=== PATIENT | female | born 1985 | race Caucasian/White ===

== ENCOUNTER → 2017-08-08 | Outpatient (CLI) | payer OTHER | LOC: FIMAGING 07:17 | PROVIDERS: ATTEND Obstetrics & Gynecology | DX: O44.22 Partial placenta previa NOS or without hemorrhage, second trimester (principal); Z3A.19 19 weeks gestation of pregnancy ==

== ENCOUNTER → 2017-09-05 | Outpatient (CLI) | payer OTHER | LOC: FIMAGING 07:50 | PROVIDERS: ATTEND Obstetrics & Gynecology | DX: Z34.02 Encounter for supervision of normal first pregnancy, second trimester (principal); Z3A.23 23 weeks gestation of pregnancy ==

== ENCOUNTER 2017-11-23 12:14 | Observation (INO) | payer OTHER ==
[2017-11-23] MEDS ORDERED: TERBUTALINE SULFATE 1 MG/ML VIAL SC PRN (12:24)
[2017-11-23] MEDS ORDERED: LR 1,000 ML IV ONE (12:25)
[2017-11-23] MEDS ORDERED: ONDANSETRON 4 MG/2 ML VIAL IVP PRN (13:01)
[2017-11-23] MEDS ORDERED: FAMOTIDINE 20 MG TAB PO PRN (13:01)
[2017-11-23] MEDS ORDERED: FAMOTIDINE 20 MG/2 ML SDV IV PRN (13:10)
[2017-11-23 13:54] VITALS: BP 108/73; PULSE 77
[2017-11-23 14:11] LABS: PLATELET COUNT 163 10^3/uL (150-400)
--- NOTE | 2017-11-23 15:56 | PDDCSUM ---
Discharge Summary Discharge Summary: S) Pt sent from office 2/2 painful contractions x 3 hours. She rated them 6/10. She denies any LOF, VB. She reports +FM. She did have 1 episode of nausea with vomiting. After 2 hours of monitoring and contractions resolving she declines repeat SVE, desires d/c home at this time. O) VSS, afebrile constitutional: WNWF, A&Ox3 HEENT: normocephalic, atraumatic, supple Heart: RRR, No murmur Chest: CTA-B Abdomen: Soft, nontender, gravid Extremities: Trace edema, and negative Jignesh's sign Neuro: Grossly normal status: EFM: baseline 140 +accels, variables x2, moderate variability noted [place]: irregular contractions notes, resolved with terbutaline, no contractions noted at this time A) 32yo with IUP@ 35+wks contractions- resolved with terbutaline No evidence of PTL dehydration- resolved with IV fluids GBS Pending P) Discharge home today cont PO hydration RTO on Monday for scheduled appt [facility] and PTL Prec discussed
== END 2017-11-23 16:20 | disposition home or self-care (01) ==
LOC: FLD 12:14
PROVIDERS: ADMIT Obstetrics & Gynecology; ATTEND Advanced Practice Midwife
DX: O99.89 Other specified diseases and conditions complicating pregnancy, childbirth and the puerperium (principal); Z3A.35 35 weeks gestation of pregnancy
CPT/HCPCS: 59025; G0378; J3105

== ENCOUNTER → 2018-02-19 | Outpatient (CLI) | payer OTHER | LOC: FIMAGING 15:42 | PROVIDERS: ATTEND Obstetrics & Gynecology | DX: N63.13 Unspecified lump in the right breast, lower outer quadrant (principal); N64.4 Mastodynia ==

== ENCOUNTER 2018-02-21 13:01 | Emergency (ER) | payer OTHER ==
--- NOTE | 2018-02-21 13:28 | EDPHY ---
H & P Stated Complaint: r mastitis Source: Patient Exam Limitations: No limitations - Personal History LMP (Females 10-55): Over 28 Days Ago Current Tetanus/Diphtheria Vaccine: Yes - Medical/Surgical History Hx Asthma: No Hx Chronic Respiratory Disease: No Hx Diabetes: No Hx Cardiac Disease: No Hx Renal Disease: No Hx Cirrhosis: No Hx Alcoholism: No Hx HIV/AIDS: No Hx Splenectomy or Spleen Trauma: No Other PMH: HX OF MIGRAINES W/ AURA, PCOS, ASTHMA, HX OF DEPRESSION, HX OF R ANKLE FX, ANKLE SURG X 2, WISDOM TEETH REM'D. DENIES PERSONAL/FAMILY HX OF ANESTH PROBLEMS. - Social History Smoking Status: Never smoked Time Seen by Provider: 02/21/18 13:23 HPI/ROS: HPI: This is a 32-year-old female who presents with Chief Complaint: Right breast mastitis Location: Right breast Quality: Mastitis Duration: 3 days Signs and Symptoms: + fever, no nausea, no vomiting, no diarrhea, no urinary symptoms, no chest pain, no shortness of breath, no wheezing, no cough, no sore throat, no neck stiffness, no joint pain, no swollen glands, no ear pain, no rash Timing: Worsening Severity: Moderate Context: Patient is currently breast-feeding her 2 month old daughter and presents with complaints of rapidly worsening right breast infection. She says that over the last 48 hr since starting dicloxacillin there has been no improvement and in fact the area has become more red, warm and tender to touch. She had a temperature yesterday evening. Dr. Valdovinos ordered a breast ultrasound 02/19/18 that showed a rounded phlegmon/mass and small fluid collection milk versus small early abscess in her right breast 4:00 position. Patient has concerns with admission to the hospital and prefers outpatient management if possible. Modifying Factors: dicloxacillin Comment: ROS: see HPI Constitutional: + fever, no chills, no weight loss Eyes: No blurred vision Respiratory: No shortness of breath, no cough Cardiovascular: No chest pain, no palpitations Gastrointestinal: No nausea, no vomiting, no diarrhea, no hematemesis, no blood in stool Genitourinary: No dysuria, no blood in urine Extremities: No myalgias, no edema Neurologic: No weakness, no numbness Skin: No rashes, no petechiae Hematologic: No bruising, no bleeding MEDICAL/SURGICAL/SOCIAL HISTORY: Medical/surgical history: HX OF MIGRAINES W/ AURA, PCOS, ASTHMA, HX OF DEPRESSION, HX OF R ANKLE FX, ANKLE SURG X 2, WISDOM TEETH removal. DENIES PERSONAL/FAMILY HX OF ANESTHESIA PROBLEMS. Social history: . Family history noncontributory. CONSTITUTIONAL: awake and alert, no obvious distress HEENT: Atraumatic and normocephalic, PERRL, EOMI. Nares patent; no rhinorrhea; no nasal mucosal edema. Tympanic membranes clear. Oropharynx clear, no exudate and moist pink mucosa. Airway patent. No lymphadenopathy. No meningismus. Cardiovascular: Normal S1/S2, regular rate, regular rhythm, without murmur rub or gallop. PULMONARY/CHEST: Symmetrical and nontender. Clear to auscultation bilaterally. Good air movement. No accessory muscle usage. BREAST: moderately erythematous indurated 9 oclock to 3 oclock position, hot to touch. no nipple discharge. ABDOMEN: Soft, nondistended, nontender, no rebound, no guarding, no peritoneal signs, no masses or organomegaly. No CVAT. EXTREMITIES: 2/2 pulses, strength 5/5, no deformities, no clubbing, no cyanosis or edema. NEUROLOGICAL: no focal neuro deficits. GCS 15. SKIN: Warm and dry, no erythema. no rash. Good capillary refill. (Ann Moore) Constitutional: Initial Vital Signs Temperature (C) 36.7 C 02/21/18 13:04 Heart Rate 90 02/21/18 13:04 Respiratory Rate 17 02/21/18 13:04 Blood Pressure 106/69 02/21/18 13:04 O2 Sat (%) 94 02/21/18 13:04 O2 Delivery Mode Room Air Allergies/Adverse Reactions: codeine Allergy (Verified 02/21/18 13:02) Abdominal Cramping Home Medications: Medication Instructions Recorded Dicloxacillin Sodium 02/21/18 Diflucan 02/21/18 Medical Decision Making - Diagnostics Imaging Results: Imaging Impressions Breast Ultrasound 02/21/18 13:34 Impression: Significantly increased size inferior right breast induration and complex fluid collection consistent with mastitis and breast abscess formation. Findings were communicated by telephone with Dr. Ann Moore at 02/21/2018 16 :14 ED Course/Re-evaluation: IV started and labs drawn. ED decision to consult Dr. Valdovinos. He recommends repeat breast ultrasound. He agrees with IV antibiotics, Clindamycin, with admission to the hospitalist and consult for I and D if needed. 1410: Labs reviewed. WBC 16 K with left shift noted. No signs of anemia/ platelet dysfunction/NIKO/electrolyte imbalance. 1430: Patient is currently at ultrasound 1514: Patient is currently breast-feeding experiencing considerable pain. She is now willing to take pain medications. IV morphine 4 mg ordered. 1619: Spoke with Radiology who advised that ultrasound shows a larger fluid collection that suspicious for abscess located at the 6 o'clock position approximately 4-5 cm from the nipple. ED decision to consult. Spoke with Dr. Barnett who kindly agrees to consult on the patient and provide further care. May benefit the patient to be switched to antibiotics of Augmentin or clindamycin 1700: End of shift. Signed over to Dr. Brown pending Dr. Barnett consult. This patient was seen under the supervision of my secondary supervising physician. I evaluated care for this patient independently. Discussed this patient with Dr. Brown who did see the patient. (Ann Moore) Differential Diagnosis: Differential diagnosis is not limited to cystitis, breast abscess, MRSA infection. (Ann Moore) Other Provider: 5:30 p.m. the patient's abscess was drained by Dr. Barnett. He wrote her prescription for Augmentin. He will follow up with her tomorrow. (Juan Carlos Brown) - Data Points Laboratory Results: Laboratory Results 02/21/18 13:45 02/21/18 13:45 02/21/18 02/21/18 13:45 13:45 WBC 16.10 10^3/uL H 10^3/uL (3.80-9.50) RBC 4.19 10^6/uL 10^6/uL (4.18-5.33) Hgb 12.0 g/dL L g/dL (12.6-16.3) Hct 36.0 % L % (38.0-47.0) MCV 85.9 fL fL (81.5-99.8) MCH 28.6 pg pg (27.9-34.1) MCHC 33.3 g/dL g/dL (32.4-36.7) RDW 11.7 % % (11.5-15.2) Plt Count 220 10^3/uL 10^3/uL (150-400) MPV 10.2 fL fL (8.7-11.7) Neut % (Auto) 83.5 % H % (39.3-74.2) Lymph % (Auto) 5.7 % L % (15.0-45.0) [place] % (Auto) 9.3 % % (4.5-13.0) Eos % (Auto) 0.9 % % (0.6-7.6) Baso % (Auto) 0.2 % L % (0.3-1.7) Nucleat RBC Rel Count 0.0 % % (0.0-0.2) Absolute Neuts (auto) 13.42 10^3/uL H 10^3/uL (1.70-6.50) Absolute Lymphs (auto) 0.92 10^3/uL L 10^3/uL (1.00-3.00) Absolute Monos (auto) 1.50 10^3/uL H 10^3/uL (0.30-0.80) Absolute Eos (auto) 0.15 10^3/uL 10^3/uL (0.03-0.40) Absolute Basos (auto) 0.04 10^3/uL 10^3/uL (0.02-0.10) Absolute Nucleated RBC 0.00 10^3/uL 10^3/uL (0-0.01) Immature Gran % 0.4 % % (0.0-1.1) Immature Gran # 0.07 10^3/uL 10^3/uL (0.00-0.10) Sodium 141 mEq/L mEq/L (135-145) Potassium 3.9 mEq/L mEq/L (3.3-5.0) Chloride 106 mEq/L mEq/L (97-110) Carbon Dioxide 22 mEq/l mEq/l (22-31) Anion Gap 13 mEq/L mEq/L (8-16) BUN 14 mg/dL mg/dL (7-23) Creatinine 0.6 mg/dL mg/dL (0.6-1.0) Estimated GFR > 60 Glucose 87 mg/dL mg/dL (70-100) Calcium 9.2 mg/dL mg/dL (8.5-10.4) Medications Given: Ceftriaxone Sodium/Dextrose (Rocephin 1 Gm (Premix)) 50 mls @ 100 mls/hr IV EDNOW ONE PRN Reason: Protocol Stop: 02/21/18 17:22 Last Admin: 02/21/18 16:58 Dose: 50 mls Discontinued Medications Ibuprofen (Motrin) 600 mg PO EDNOW ONE Stop: 02/21/18 16:57 Last Admin: 02/21/18 16:58 Dose: 600 mg Morphine Sulfate (Morphine) 4 mg IVP EDNOW ONE Stop: 02/21/18 15:15 Last Admin: 02/21/18 15:47 Dose: 2 mg Departure - Departure Disposition: Home, Routine, Self-Care Clinical Impression: Acute mastitis of right breast, Abscess of right breast Condition: Fair Referrals: Aranza Sheppard MD [Primary Care Provider] - As per Instructions Yinka Barnett MD [Medical Doctor] - 1 day without fail
[2018-02-21 13:51] LABS: PLATELET COUNT 220 10^3/uL (150-400)
[2018-02-21] MEDS ORDERED: IBUPROFEN 600 MG TAB PO ONE ×2 (16:52→16:56)
[2018-02-21] MEDS ORDERED: cefTRIAXone 1 GM/DEXTROSE 1 GM/50 ML BAG IV ONE (16:56)
--- NOTE | 2018-02-21 17:02 | PDCONSULT ---
It Desktop Support Technician Note: Kelin is a 32 y/o female with a one month 19 day old baby who has been nursing. She developed a "blocked duct" one month ago and was seen by Dr. Pedraza 2 days ago at which time she was started on Dicloxacillin. She was not improving and was referred to the ED by Dr. Pedraza for evaluation. Surgical consultation was requested by Hermila Moore PA-C PMH: prior nipple piercing age 19/no prior mastitis all: codeine SH: here with daughter (Tanja) and FH: NC ROS: has been able to nurse from the right breast/feeling chilled with fever PE: WDWN female in mild distress right breast erythematous, swollen with fluctuant abscess in the right LIQ using sterile technique and after injecting the skin with 1% lidocaine the abscess was aspirated with an 18 guage needle and 8ml of thick purulent/milky fluid was aspirated. A specimen was submitted for culture and gram stain. Imp: right breast abscess/mastitis Rec: Rocephin 1 gm IVPB oral Augmentin 875 mg po BID FU in 24 hours/may need repeat aspirations discussed alternative of surgical drainage which I would like to avoid as it could result in a milk fistula that would require her to stop nursing S MD Ericka, FACS
[2018-02-21 17:30] VITALS: BP 115/63
== END 2018-02-21 17:45 | disposition home or self-care (01) ==
DX: N61.1 Abscess of the breast and nipple (principal); J45.909 Unspecified asthma, uncomplicated
CPT/HCPCS: 96365; J0696; J2270

== ENCOUNTER → 2018-02-23 | Outpatient (CLI) | payer OTHER | LOC: FIMAGING 10:49 | PROVIDERS: ATTEND Surgery | DX: N61.1 Abscess of the breast and nipple (principal) ==